=== PATIENT | female | born 1995 | race Hispanic/Latino ===

== ENCOUNTER 2024-11-03 01:44 | Inpatient (IN) | payer MEDICAID, SELFPAY ==
[2024-11-03 02:08] LABS: Pregnancy Test - Urine (BHCG) Negative (Negative); Pregu Control Background? CLEAR/WHITE (CLR/WHITE); Pregu Control Bar Appear? YES (CONTROL BAR)
[2024-11-03 02:10] LABS: Leukocyte Negative (Negative); Specific Gravity, Urine 1.020 (1.005-1.030)
[2024-11-03 02:11] LABS: Glucose, Urine (Dipstick) Normal (Negative); Protein, Urine (Dipstick) 30 mg/dl (Neg-Trace)
[2024-11-03 02:15] LABS: Bacteria/HPF 1+ HPF (None Seen); CAUTI Indications for Culture Pelvic or flank pain; RBC/HPF Greater than 50 HPF (0-3); WBC/HPF 0-3 HPF (0-3)
[2024-11-03 02:16] LABS: Urine Culture Reflex No No
[2024-11-03] MEDS ORDERED: Ondansetron PF 4 MG/2 ML Vial ONE ×2 (02:34→09:09)
[2024-11-03 02:35] LABS: #Basophils 0.05 10x3/uL (0.0-0.2); #Eosinophils 0.20 10x3/uL (0.0-0.5); #Monocytes 0.59 10x3/uL (0.0-1.1); #Neutrophils 5.51 10x3/uL (1.5-8.4); %Basophils 0.6 % (0.0-2.0); %Eosinophils 2.5 % (0.0-6.0); %Lymphocytes 21.0 % (18.0-47.0); %Monocytes 7.3 % (0.0-10.0); %Neutrophils 68.5 % (40.0-75.0); Hematocrit 32.8 % (34.9-44.5); Hemoglobin 10.8 g/dL (12.0-15.5); Mean Corpuscular Hemoglobin 28.7 pg (27.0-33.0); Mean Corpuscular Volume 87.2 fL (81.6-98.3); Platelet Count 376 10x3/uL (150-450); Red Blood Cell (RBC) Count 3.76 10x6/uL (3.90-5.03); White Blood Cell (WBC) Count 8.05 10x3/uL (3.5-10.5)
[2024-11-03 03:09] LABS: ALT (SGPT) 16 U/L (Less than 34); AST (SGOT) 21 U/L (11-34); Albumin 3.9 g/dL (3.1-4.5); Alkaline Phosphatase 101 U/L (40-110); Anion Gap 13 mmol/L (10-20); BUN (Urea Nitrogen) 17 mg/dL (7.0-18.7); Bilirubin, Total 0.2 mg/dL (0.3-1.2); Calc. Creatinine Clearance 0 mL/min (70-130); Calcium 9.0 mg/dL (7.8-10.44); Carbon Dioxide 19 mmol/L (22-29); Chloride 108 mmol/L (98-107); Globulin 3.9 g/dL (2.4-3.5); Glucose 105 mg/dL (70-105); Lipase 37 U/L (8-78); Potassium 3.6 mmol/L (3.5-5.1); Sodium 136 mmol/L (136-145)
[2024-11-03 03:20] LABS: INR-International Normal Ratio 1.0; PTT 29.9 sec (22.0-33.0); Prothrombin Time 10.6 sec (9.5-12.1)
[2024-11-03 04:06] VITALS: BMI 31.8
[2024-11-03] MEDS ORDERED: Ketorolac Tromethamine 30 MG (1 mL) VIAL IVP PRN (04:31)
[2024-11-03] MEDS ORDERED: Ondansetron PF 4 MG/2 ML Vial IVP PRN ×2 (04:34→09:48)
[2024-11-03] MEDS ORDERED: Rocuronium Bromide 10 MG/ML (10ML VIAL) ONE (08:35)
[2024-11-03] MEDS ORDERED: PROPOFOL 20 ML ONE (08:36)
[2024-11-03] MEDS ORDERED: CEFAZOLIN 2 GM VIAL ONE (08:38)
[2024-11-03] MEDS ORDERED: Bupivacaine/Epinephrine 0.25% 30 ML VIAL ONE (08:39)
[2024-11-03] MEDS ORDERED: Sevoflurane 250 ML INH ANEST BOTTLE ONE (08:46)
[2024-11-03] MEDS ORDERED: SUGAMMADEX SODIUM 200 MG/2 ML VIAL ONE (09:37)
[2024-11-03] MEDS ORDERED: Mag-Al 1200 mg/1200 mg/30 ML UDCUP PO PRN (09:48)
[2024-11-03] MEDS ORDERED: oxyCODONE 5 MG TAB PO PRN (09:48)
[2024-11-03] MEDS ORDERED: Dextrose 50% Abboject 50 ML SYRINGE SLOW IVP PRN (09:48)
[2024-11-03] MEDS ORDERED: Calcium Carbonate 500 MG ChewTAB PO PRN (09:48)
[2024-11-03] MEDS ORDERED: Glucagon 1 MG/ML KIT IM PRN (09:48)
[2024-11-03] MEDS ORDERED: hydrALAZINE 20 MG/ML VIAL SLOW IVP PRN (09:48)
[2024-11-03 13:35] VITALS: BP 98/67; TEMP 98
[2024-11-03] MEDS ORDERED: Acetaminophen 500 MG TAB PO SCH (14:00)
[2024-11-03] MEDS ORDERED: Famotidine/PF 20 mg/2ml Vial SLOW IVP PRN (21:00)
[2024-11-03] MEDS ORDERED: Famotidine 20 MG TAB PO SCH (21:00)
== END 2024-11-03 13:35 | disposition home or self-care (01) | DRG 419 ==
LOC: CSHERS 01:44 → CSHICU 04:02
PROVIDERS: ADMIT Surgery; ATTEND Surgery
PROC: 0FT44ZZ Resection of Gallbladder, Percutaneous Endoscopic Approach (ICD-10-PCS; principal; 2024-11-03)
PROC: 8E0W4CZ Robotic Assisted Procedure of Trunk Region, Percutaneous Endoscopic Approach (ICD-10-PCS; 2024-11-03)
PROC: 3E03329 Introduction of Other Anti-infective into Peripheral Vein, Percutaneous Approach (ICD-10-PCS; 2024-11-03)
DX: K81.0 Acute cholecystitis (principal); Z98.891 History of uterine scar from previous surgery; Z79.899 Other long term (current) drug therapy
CPT/HCPCS: 76705; 80053; 81001; 81025; 83690; 85025; 85610; 85730; 88304; 96365; 96375; C1889; J1100; J2250; J2270; J2405; J2543; J2704; J3010; J7030; S2900